=== PATIENT | male | born 1995 | race Two or more races ===

== ENCOUNTER 2022-06-28 09:01 | Outpatient (CLI) | payer OTHER | END 2022-06-28 09:10 | disposition home or self-care (01) | LOC: LAB 09:01 | DX: R50.9 Fever, unspecified (principal); R06.02 Shortness of breath; R05.1 Acute cough; Z20.828 Contact with and (suspected) exposure to other viral communicable diseases; Z03.818 Encounter for observation for suspected exposure to other biological agents ruled out; Z20.822 Contact with and (suspected) exposure to COVID-19; J12.82 Pneumonia due to coronavirus disease 2019 ==